=== PATIENT | female | born 1980 | race Caucasian/White ===

== ENCOUNTER → 2017-03-19 | Outpatient (CLI) | payer OTHER ==
[~2017-03-19] MED LIST: ALDACTONE12.5 MG PO; ATORVASTATIN CA40 MG PO; CYTOMEL5 MCG PO; FORTAMET1000 M1 PO; IRON240 MG PO; JARDIANCE25 MG PO; LIPITOR20 MG PO; LISINOPRIL10 MG PO; MELATONIN5 M1 PO; METFORMIN HYDROC1 GM MC; NEXIUM40 MG PO; PROZAC20 MG PO; SYNTHROID125 MCG PO; TRAZODONE HCL150 MG PO; TRULICITY0.75 MG/0. SC; VIIBRYD20 MG PO; WELLBUTRIN100 MG PO; ZYRTEC10 M2 PO
[2017-03-19 09:13] LABS: POINT-OF-CARE METER ID UU14107333
[2017-03-19 09:28] LABS: CHLORIDE 106 mEq/L (99-109); POTASSIUM 4.3 mEq/L (3.7-5.4); SODIUM 139 mEq/L (136-147)
[2017-03-19 09:30] LABS: GLUCOSE 133 mg/dL (70-99)
[2017-03-19 09:31] LABS: ANION GAP 10 MEQ/L (2-14)
[2017-03-19 09:34] LABS: GFR ESTIMATE (CALCULATED) > 59 mL/min/
[2017-03-19 09:35] LABS: UREA NITROGEN (BUN) 13 mg/dL (9-23)
== END | disposition home or self-care (01) ==
LOC: AMB 07:47
PROVIDERS: Internal Medicine Gastroenterology
DX: K21.9 Gastro-esophageal reflux disease without esophagitis (principal); E11.43 Type 2 diabetes mellitus with diabetic autonomic (poly)neuropathy; E05.90 Thyrotoxicosis, unspecified without thyrotoxic crisis or storm; D50.0 Iron deficiency anemia secondary to blood loss (chronic); F41.9 Anxiety disorder, unspecified; F32.9 Major depressive disorder, single episode, unspecified; K31.84 Gastroparesis; Z85.850 Personal history of malignant neoplasm of thyroid; K22.70 Barrett's esophagus without dysplasia; R13.10 Dysphagia, unspecified; Z79.84 Long term (current) use of oral hypoglycemic drugs; Z90.49 Acquired absence of other specified parts of digestive tract; Z88.1 Allergy status to other antibiotic agents
CPT/HCPCS: 80048; 82948; 93005; J0330; J2250; J2405; J3010